=== PATIENT | male | born 1995 | race Caucasian/White ===

== ENCOUNTER 2017-11-03 19:54 | Emergency (ER) | payer OTHER ==
[2017-11-03] MEDS ORDERED: Sodium Chloride 0.9% 10 ML Syringe FLUSH PRN (19:56)
--- NOTE | 2017-11-03 19:56 | EDM.PDOC ---
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 Cont [CT] Stat Lumbar Spine 1V [CR] Stat Max Facial Sinus wo Cont [CT] Stat Pelvis 1V or 2V [CR] Stat OCCULT BLOOD DIAGNOSTIC [OP] Stat Obtain Past Medical Record [OM.PC] Urgent Peripheral IV Insertion Adult [OM.PC] Stat 11/03/17 20:19 Tibia Fibula Rt [CR] Stat 11/03/17 20:24 Vaccines to be Administered [RC] PER UNIT ROUTINE 11/03/17 20:30 Lactated Ringers [Ringers, Lactated] 1,000 ml IV ASDIRECTED 11/03/17 21:06 Chest w Cont [CT] Routine 11/03/17 Breakfast Nothing per Oral Now Diet [DIET] Assessment:: As above Plan: As above. Extensive precautions were given to the patient, who is in agreement with the treatment plan. Air ambulance transport as above.
[2017-11-03] MEDS ORDERED: Ondansetron 4 MG/2 ML SDV IVPUSH ONE (20:18)
[2017-11-03] MEDS ORDERED: fentaNYL 100 MCG/2 ML SDV IVPUSH ONE (20:18)
[2017-11-03] MEDS ORDERED: Lactated Ringers 1,000 ML IV ONE (20:23)
[2017-11-03] MEDS ORDERED: Diphtheria,Pertussis(Acell),Tetanus Vaccine 0.5 ML SDV IM ONE (20:24)
[2017-11-03 20:29] LABS: CHLORIDE,CL 103 mmol/L (98-107); SODIUM,NA 143 mmol/L (136-145)
[2017-11-03] MEDS ORDERED: Lactated Ringers 1,000 ML IV SCH (20:30)
[2017-11-03] MEDS ORDERED: Pantoprazole 40 MG Vial IVPUSH ONE (20:50)
[2017-11-03] MEDS ORDERED: Famotidine 20 MG/2 ML SDV IVPUSH ONE (20:50)
[2017-11-03] MEDS ORDERED: Iopamidol 755 MG/ML 50 ML Bottle ONE (21:27)
[2017-11-03] MEDS ORDERED: Iopamidol 612 MG/ML 100 ML Bottle ONE (21:27)
[2017-11-03] MEDS ORDERED: Iopamidol 612 MG/ML 50 ML SDV ONE (21:33)
== END 2017-11-03 21:50 ==
LOC: LL.ED 19:54
DX: S82.251A Displaced comminuted fracture of shaft of right tibia, initial encounter for closed fracture (principal); R07.9 Chest pain, unspecified; I45.10 Unspecified right bundle-branch block; F10.129 Alcohol abuse with intoxication, unspecified; E87.6 Hypokalemia; R79.89 Other specified abnormal findings of blood chemistry; R73.9 Hyperglycemia, unspecified; S01.01XA Laceration without foreign body of scalp, initial encounter; S31.010A Laceration without foreign body of lower back and pelvis without penetration into retroperitoneum, initial encounter; S81.812A Laceration without foreign body, left lower leg, initial encounter; S81.811A Laceration without foreign body, right lower leg, initial encounter; S01.81XA Laceration without foreign body of other part of head, initial encounter; S01.112A Laceration without foreign body of left eyelid and periocular area, initial encounter; S61.412A Laceration without foreign body of left hand, initial encounter; Y90.6 Blood alcohol level of 120-199 mg/100 ml; Z23 Encounter for immunization; R74.8 Abnormal levels of other serum enzymes; V58.5XXA Driver of pick-up truck or van injured in noncollision transport accident in traffic accident, initial encounter
CPT/HCPCS: 36415; 70450; 70486; 71045; 71260; 72020; 72125; 72170; 73590-RT; 74177; 80053; 80305-QW; 81001; 82150; 82550; 82553; 83605; 83690; 83735; 84484; 84550; 85025; 85610; 85730; 87086; 90471; 90715; 93005; 96374; 96375; 99285; C9113; G0480; J2405; J3010; J3490; J7050; J7120; Q9967

== ENCOUNTER 2019-01-28 17:47 | Emergency (ER) | payer OTHER ==
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
[2019-01-28] MEDS: Bacitracin/Neomycin/Polymyxin B Oint 0.9 GM U/D Packet TOP ONE (19:15)
[2019-01-28] MEDS: Amoxicillin/Clavulanate K 875-125 MG Tab PO ONE (19:30)
== END 2019-01-28 19:50 | disposition home or self-care (01) ==
LOC: LL.ED 17:47
DX: S61.211A Laceration without foreign body of left index finger without damage to nail, initial encounter (principal); S61.213A Laceration without foreign body of left middle finger without damage to nail, initial encounter; F17.210 Nicotine dependence, cigarettes, uncomplicated; Z71.6 Tobacco abuse counseling; W26.8XXA Contact with other sharp object(s), not elsewhere classified, initial encounter; Y99.0 Civilian activity done for income or pay
CPT/HCPCS: 12004; 73130; 99283; A9270; J2001

== ENCOUNTER 2020-06-28 14:45 | Emergency (ER) | payer SELFPAY ==
[2020-06-28] MEDS ORDERED: Lidocaine 2% 5 ML SDV INJECT ONE (15:25)
[2020-06-28] MEDS ORDERED: Bacitracin Oint 1 GM U/D Packet TOP ONE (15:50)
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
== END 2020-06-28 16:03 | disposition home or self-care (01) ==
LOC: LL.ED 14:45
DX: S61.210A Laceration without foreign body of right index finger without damage to nail, initial encounter (principal); S61.212A Laceration without foreign body of right middle finger without damage to nail, initial encounter; Z72.0 Tobacco use; W26.8XXA Contact with other sharp object(s), not elsewhere classified, initial encounter
CPT/HCPCS: 12001; 99282-25; 99283